=== PATIENT | female | born 1975 | race Caucasian/White ===

== ENCOUNTER 2016-03-09 22:19 | Emergency (ER) | payer OTHER ==
[~2016-03-09] VITALS: Ht 157.5 cm; Wt 95.3 kg
--- OUTSIDE RECORDS SUMMARY | 2016-03-09 22:24 | XMS REPORT | Continuity of Care Document ---
Author Author [facility] Organization [facility] Address Unknown Phone Unavailable Care Team Providers Care Siphon Operator Name Role Phone Kosta Barnes PCP [phone] Source Comments Some departments are not documenting in the electronic medical record. If you do not see the information that you expected, contact Release of Information in the Health Information Management department at [phone] for further assistance in locating additional records.[facility] Active Allergies and Adverse Reactions Allergen Noted Date Severity Reactions Comments Augmentin 03/22/2012 NAUSEA AND VOMITING Cephalosporins 03/22/2012 ANAPHYLAXIS, SHORTNESS OF BREATH Percocet 03/22/2012 NAUSEA AND VOMITING Sulfa (Sulfonamide 03/22/2012 HIVES Antibiotics) Current Medications Prescription Sig. Disp. Refills Start End Date Status Date DOCOSAHEXANOIC ACID/EPA Take 3 Caps by mouth Active (FISH OIL PO) daily. ergocalciferol (VITAMIN Take 50,000 Units by Active D-2) 50,000 unit capsule mouth every 7 days. drospirenone-ethinyl Take 1 Tab by mouth Active estradiol(+) (DEMI 28; daily. OCELLA; CANDELARIO; TARSHA) tablet Cyanocobalamin (NASCOBAL) Apply 1 [place] to each Active 500 mcg [place] nostril as directed twice weekly. MULTIVITAMIN WITH Take 1 Tab by mouth Active MINERALS (MULTIVITAMIN & daily. MINERAL FORMULA PO) Fluticasone Furoate Apply 1 [place] to each Active (VERAMYST) 27.5 nostril as directed twice mcg/actuation SpSn daily. atenolol (TENORMIN) 25 mg Take 25 mg by mouth Active tablet daily. cholecalciferol (Vitamin Take 1,000 Units by mouth Active D3) (VITAMIN D-3) 1,000 daily. units tablet aspirin/acetaminophen/caf Take 1 Tab by mouth as Active feine(+) (EXCEDRIN Needed. MIGRAINE) 250/250/65 mg Tab ibuprofen (MOTRIN) 600 mg Take 600 mg by mouth as Active tablet Needed. FEXOFENADINE HCL ([place] Take 1 Tab by mouth Active PO) daily. SIMETHICONE (GAS-X PO) Take 1 Tab by mouth as Active Needed. omeprazole DR(+) Take 20 mg by mouth as Active (PRILOSEC) 20 mg capsule Needed. ketorolac (TORADOL) 10 mg Take 10 mg by mouth as Active tablet Needed. ALPRAZolam (XANAX) 0.5 mg Take 0.5 mg by mouth at Active tablet bedtime as needed. CYCLOBENZAPRINE HCL Take 1 Tab by mouth at Active (FLEXERIL PO) bedtime daily. acetaminophen (TYLENOL) Take 500 mg by mouth as Active 500 mg tablet Needed. 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
[2016-03-09] MEDS ORDERED: ASPIRIN 81 MG CHEW (CHILDREN'S ASA) PO ONE (22:45)
[2016-03-09 22:46] LABS: BASOPHILS % (AUTO) 0 % (0-10); EOSINOPHILS # (AUTO) 0.1 10^3/uL (0.0-0.3); EOSINOPHILS % (AUTO) 1 % (0-10); LYMPHOCYTES # (AUTO) 4.1 X 10^3 (1.0-4.0); LYMPHOCYTES % (AUTO) 37 % (12-44); MEAN CORPUSCULAR HEMOGLOBIN 30 PG (25-34); MEAN CORPUSCULAR HGB CONC 34 G/DL (32-36); MEAN CORPUSCULAR VOLUME 87 FL (80-99); MEAN PLATELET VOLUME 9.1 FL (7.4-10.4); MONOCYTES # (AUTO) 0.7 X 10^3 (0.0-1.0); MONOCYTES % (AUTO) 7 % (0-12); NEUTROPHILS # (AUTO) 6.1 X 10^3 (1.8-7.8); NEUTROPHILS % (AUTO) 55 % (42-75); PLATELET COUNT 269 10^3/uL (130-400); RED BLOOD COUNT 4.78 10^6/uL (4.35-5.85); RED CELL DISTRIBUTION WIDTH 13.1 % (10.0-14.5); WHITE BLOOD COUNT 11.1 10^3/uL (4.3-11.0)
[2016-03-09] MEDS ORDERED: ATEN25TA PO (22:48)
[2016-03-09] MEDS ORDERED: ETHI1TAB26 PO (22:48)
[2016-03-09] MEDS ORDERED: Ibuprofen (23:05)
[2016-03-09] MEDS ORDERED: ASCO-262 PO (23:05)
[2016-03-09] MEDS ORDERED: CYCL10TA9 PO (23:05)
[2016-03-09] MEDS ORDERED: CALC-857 PO (23:05)
[2016-03-09] MEDS ORDERED: Ketorolac PO (23:05)
[2016-03-09] MEDS ORDERED: Excedrin PO (23:05)
[2016-03-09] MEDS ORDERED: Protonix (23:05)
[2016-03-09 23:11] LABS: ALANINE AMINOTRANSFERASE 11 U/L (0-55); ANION GAP 12 MMOL/L (5-14); ASPARTATE AMINO TRANSFERASE 13 U/L (5-34); BILIRUBIN,TOTAL 0.3 MG/DL (0.1-1.0); BLOOD UREA NITROGEN 12 MG/DL (7-18); BUN/CREATININE RATIO 16; CALCIUM 8.9 MG/DL (8.5-10.1); CARBON DIOXIDE 23 MMOL/L (21-32); CHLORIDE 105 MMOL/L (98-107); CREATININE SERUM 0.77 MG/DL (0.60-1.30); GFR ESTIMATED > 60; GLUCOSE 95 MG/DL (70-105); POTASSIUM 3.1 MMOL/L (3.6-5.0); SODIUM 140 MMOL/L (135-145); TOTAL PROTEIN 6.9 G/DL (6.4-8.2)
--- NOTE | 2016-03-09 23:12 | ED Chest Pain ---
General Chief Complaint: Chest Pain Stated Complaint: CHEST PAIN Nursing Triage Note: PALPITATIONS SINCE YESTERDAY A.M. AND EVENTUALLY CEASED LAST NIGHT. WENT TO WALK IN CARE AT [facility] YESTERDAY FOR THIS. PAIN STARTED AGAIN AFTER 1999 AFTER EATING. PT HAS APPT WITH [facility] IN TOMORROW. Nursing Sepsis Screen: No Definite Risk Source: patient Exam Limitations: no limitations History of Present Illness Time seen by provider: 22:23 Initial Comments This 40-year-old woman presents to the emergency room with primary complaint of palpitations that started yesterday morning. They started after she consumed a protein shake. She describes multiple episodes over the last 48 hours. She does have a history of autonomic dysfunctions for which she sees a negotiator sales , Phuong Peres, at [facility]. She takes atenolol 25 mg daily. Palpitations began again tonight around 20:00. Over the last hour she has developed a little bit of chest discomfort in the lower chest/epigastrium. Discomfort is minimal. She is somewhat anxious. She is on oral control. She took one Excedrin this morning but denies any other stimulants of any kind. Allergies and Home Medications Allergies Coded Allergies: Sulfa (Sulfonamide Antibiotics) (Verified Allergy, Intermediate, HIVES, ITCHING, 05/08/08) amoxicillin (Verified Adverse Reaction, Mild, N/V, 05/08/08) erythromycin base (Verified Adverse Reaction, Mild, NAUSEA, 05/08/08) oxycodone (Verified Adverse Reaction, Mild, N/V, 05/08/08) potassium clavulanate (Verified Adverse Reaction, Mild, N/V, 05/08/08) Uncoded Allergies: MACROLIDES (Adverse Reaction, Unknown, 03/09/16) states her Dr request she avoid Home Medications 10 MG PO PRN (Reported) PO PRN MIGRAINE (Reported) (Reported) (Reported) Ascorbate Calcium 500 Mg Tablet 500 MG PO BID (Reported) Atenolol 25 Mg Tablet 25 MG PO DAILY (Reported) Calcium Carbonate/Vitamin D3 1 Each Tab.chew 2 EACH PO DAILY (Reported) Cyclobenzaprine HCl 10 Mg Tablet 10 MG PO PRN (Reported) Ethinyl Estradiol/Drospirenone 1 Each Tablet 1 EACH PO DAILY (Reported) Review of Systems Constitutional: no symptoms reported EENTM: No Symptoms Reported Respiratory: No Symptoms Reported Cardiovascular: See HPI Gastrointestinal: No Symptoms Reported Genitourinary: No Symptoms Reported Musculoskeletal: no symptoms reported Skin: no symptoms reported Psychiatric/Neurological: See HPI Endocrine: No Symptoms Reported Past Wtxukfx-Wcjjff-Bnewhw Hx Patient Social History Alcohol Use: Rarely Uses Recreational Drug Use: No Smoking Status: Never a Smoker Recent Foreign Travel: No Contact w/Someone Who Travel: No Recent Infectious Disease Expo: No Recent Hopitalizations: No Physical Abuse Screen: No Sexual Abuse: No Seasonal Allergies Seasonal Allergies: No Surgeries Surgeries: Adenoidectomy, Appendectomy, Gallbladder, Tonsillectomy Respiratory Hx Respiratory Disorders: No Cardiovascular Hx Cardiac Disorders: Yes (AUTONOMIC DYSFUNCTION (SEES CARDIOLOGY)) Neurological Hx Neurological Disorders: Yes (Chiari malformation) Neurological Disorders: Headaches /Migraines Reproductive System : No Hx Reproductive Disorders: No Sexually Transmitted Disease: No Female Reproductive Disorders: Polycystic Ovarian Dis Genitourinary Hx Genitourinary Disorders: No Gastrointestinal Hx Gastrointestinal Disorders: No Musculoskeletal Hx Musculoskeletal Disorders: No Endocrine Hx Endocrine Disorders: No HEENT HX ENT Disorders: No Cancer Hx Cancer: No Psychosocial Hx Psychiatric Problems: No Integumentary HX Skin/Integumentary Disorder: No Blood Transfusions Hx Blood Disorders: No Family Medical History Significant Family History: Heart Disease (Hx of SVT), Cancer (colon), Hypertension, Psychiatric Problems, Stroke Physical Exam Vital Signs Capillary Refill : Less Than 3 Seconds General Appearance: No Apparent Distress WD/WN HEENT: PERRL/EOMI Normal ENT Inspection Neck: Normal Inspection Respiratory: Chest Non Tender Lungs Clear Normal Breath Sounds No Accessory Muscle Use No Respiratory Distress Cardiovascular: No Edema No Murmur Normal Peripheral Pulses Other (irregular rhythm consistent with bigeminy noted on monitor) Gastrointestinal: Normal Bowel Sounds Non Tender Soft Extremity: Normal Capillary Refill Normal Inspection Normal Range of Motion Neurologic/Psychiatric: Alert Oriented x3 No Motor/Sensory Deficits Normal Mood/Affect carton folder [id number] Norm as Tested Skin: Normal Color Warm/Dry Progress/Results/Core Measures Results/Orders Lab Results Laboratory Tests Test 03/09/16 22:27 Range/Units Activated Partial Thromboplast Time 30 24-35 SEC Alanine Aminotransferase (ALT/SGPT) 11 0-55 U/L Albumin 4.0 3.2-4.5 G/DL Alkaline Phosphatase 78 40-136 U/L Anion Gap 12 5-14 MMOL/L Aspartate Amino Transf (AST/SGOT) 13 5-34 U/L BUN/Creatinine Ratio 16 Basophils # (Auto) 0.0 0.0-0.1 10^3/uL Basophils (%) (Auto) 0 0-10 % Blood Urea Nitrogen 12 7-18 MG/DL Calcium Level 8.9 8.5-10.1 MG/DL Carbon Dioxide Level 23 21-32 MMOL/L Chloride Level 105 98-107 MMOL/L Creatinine 0.77 0.60-1.30 MG/DL Eosinophils # (Auto) 0.1 0.0-0.3 10^3/uL Eosinophils (%) (Auto) 1 0-10 % Estimat Glomerular Filtration Rate > 60 Glucose Level 95 70-105 MG/DL Hematocrit 42 35-52 % Hemoglobin 14.1 11.5-16.0 G/DL INR Comment 1.0 0.8-1.4 Lymphocytes # (Auto) 4.1 H 1.0-4.0 X 10^3 Lymphocytes (%) (Auto) 37 12-44 % Magnesium Level 2.0 1.8-2.4 MG/DL Mean Corpuscular Hemoglobin 30 25-34 PG Mean Corpuscular Hemoglobin Concent 34 32-36 G/DL Mean Corpuscular Volume 87 80-99 FL Mean Platelet Volume 9.1 7.4-10.4 FL Monocytes # (Auto) 0.7 0.0-1.0 X 10^3 Monocytes (%) (Auto) 7 0-12 % Myoglobin 53.7 10.0-92.0 NG/ML Neutrophils # (Auto) 6.1 1.8-7.8 X 10^3 Neutrophils (%) (Auto) 55 42-75 % Platelet Count 269 130-400 10^3/uL Potassium Level 3.1 L 3.6-5.0 MMOL/L Prothrombin Time 13.0 12.2-14.7 SEC Red Blood Count 4.78 4.35-5.85 10^6/uL Red Cell Distribution Width 13.1 10.0-14.5 % Serum Test, Qualitative NEGATIVE NEGATIVE Sodium Level 140 135-145 MMOL/L TSH [place] Testing 1.75 0.35-4.94 UIU/ML Total Bilirubin 0.3 0.1-1.0 MG/DL Total Protein 6.9 6.4-8.2 G/DL Troponin I < 0.30 <0.30 NG/ML White Blood Count 11.1 H 4.3-11.0 10^3/uL My Orders Orders-LÁZARO MEJIA MD Cbc With Automated Diff (03/09/16 22:39) Magnesium (03/09/16 22:39) Chest 1 View, Ap/Pa Only (03/09/16 22:39) Ekg Tracing (03/09/16 22:39) Cardiac Profile 1 (03/09/16 22:39) Comprehensive Metabolic Panel (03/09/16 22:39) Myoglobin Serum (03/09/16 22:39) Protime With Inr (03/09/16 22:39) Partial Thromboplastin Time (03/09/16 22:39) O2 (03/09/16 22:39) Monitor-Rhythm Ecg Trace Only (03/09/16 22:39) Aspirin Chewable Tablet (Baby Aspirin Ch (03/09/16 22:45) Saline Lock/Iv-Start (03/09/16 22:39) Thyroid Analyzer (03/09/16 22:39) Hcg,Qualitative Serum (03/09/16 23:18) Potassium Chloride (Tablet) (Klor Con Ta (03/09/16 23:45) Medications Given in ED Vital Signs/I&O Blood Pressure Mean: 130 Progress Note #1: Time: 23:09 Progress Note Chest pain protocol orders have been placed. Patient has received aspirin. EKG and monitor demonstrated periodic bigeminy and interspersed frequent PVCs. There is no ST elevation or depression. Progress Note #2: Time: 00:41 Progress Note Potassium was replaced orally. Patient's PVCs and bigeminy decreased in frequency and she was feeling somewhat improved prior to dismissal. Case was reviewed with Dr. Lyons who believes she is safe to travel to her primary cardiology team in [place] later today. ECG Initial ECG Impression Date: Mar 09, 2016 Initial ECG Impression Time: 22:29 Initial ECG Rate: 94 Comment Sinus rhythm with intermittent bigeminy. No ST elevation or depression. LVH by automated read. Diagnostic Imaging Diagonstic Imaging: Xray Plain Films/CT/US/NM/MRI: chest Comments Chest x-ray viewed by me. Report not available. No acute abnormalities appreciated. Departure Impression Impression: Primary Impression: Bigeminy Additional Impression: Hypokalemia Disposition: 01 HOME, SELF-CARE Condition: Improved Departure-Patient Inst. Decision time for Depature: 00:30 Referrals: DIAMOND HENDERSON DO (PCP) Primary Care Physician Patient Instructions: Hypokalemia, Palpitations Add. Discharge Instructions: Keep your appointment with your primary cardiology team later today. Return to the ER if symptoms worsen. Eat a diet high in potassium which may include foods such as citrus fruits and juices, watermelon, yogurt, bananas, etc. Continue your other home medications. Avoid excessive stimulants such as caffeine, decongestants, energy drinks, etc. All discharge instructions reviewed with patient and/or family. Voiced understanding. LÁZARO MEJIA MD Mar 09, 2016 23:[address] Lyons who believes she is safe to travel to her primary cardiology team in [place] later today. ECG Initial ECG Impression Date: Mar 09, 2016 Initial ECG Impression Time: 22:29 Initial ECG Rate: 94 Comment Sinus rhythm with intermittent bigeminy. No ST elevation or depression. LVH by automated read. Diagnostic Imaging Diagonstic Imaging: Xray Plain Films/CT/US/NM/MRI: chest Comments Chest x-ray viewed by me. Report not available. No acute abnormalities appreciated. Departure Impression Impression: Primary Impression: Bigeminy Additional Impression: Hypokalemia Disposition: 01 HOME, SELF-CARE Condition: Improved Departure-Patient Inst. Decision time for Depature: 00:30 Referrals: DIAMOND HENDERSON DO (PCP) Primary Care Physician Patient Instructions: Hypokalemia, Palpitations Add. Discharge Instructions: Keep your appointment with your primary cardiology team later today. Return to the ER if symptoms worsen. Eat a diet high in potassium which may include foods such as citrus fruits and juices, watermelon, yogurt, bananas, etc. Continue your other home medications. Avoid excessive stimulants such as caffeine, decongestants, energy drinks, etc. All discharge instructions reviewed with patient and/or family. Voiced understanding. LÁZARO MEJIA MD Mar 09, 2016 23:12
[2016-03-09] MEDS ORDERED: KCL 10 MEQ TAB (MICRO K) PO ONE (23:45)
[2016-03-09 23:51] LABS: MYOGLOBIN SERUM 53.7 NG/ML (10.0-92.0)
[2016-03-10 00:53] VITALS: BP 118/81
--- NOTE | 2016-03-10 07:12 | Diagnostic Imaging Report ---
INDICATION: Chest pain Comparison is made to study of 04/29/2014. FINDINGS: Heart size and pulmonary vascularity are within normal limits, and the lungs are clear, bilaterally. IMPRESSION: Unremarkable chest. Dictated by: Dictated on workstation # [id number]
== END 2016-03-10 00:53 | disposition home or self-care (01) ==
LOC: EDUNIT# 22:19 → ER 22:20
DX: R00.8 Other abnormalities of heart beat (principal); E87.6 Hypokalemia
CPT/HCPCS: 36415; 71010; 80053; 83735; 83874; 84443; 84484; 84703; 85025; 85610; 85730; 93005; 93041

== ENCOUNTER 2016-04-07 08:04 | Outpatient (RCR) | payer OTHER ==
[~2016-04-07 08:04] MED LIST: ASCO-262 PO; ATEN25TA PO; CALC-857 PO; CYCL10TA9 PO; ETHI1TAB26 PO; Excedrin PO; Ibuprofen; Ketorolac PO; Protonix
--- OUTSIDE RECORDS SUMMARY | 2016-04-07 08:08 | XMS REPORT | Continuity of Care Document ---
Author Author [facility] Organization [facility] Address Unknown Phone Unavailable Care Team Providers Care Log Handler Name Role Phone Kosta Barnes PCP [phone] Source Comments Some departments are not documenting in the electronic medical record. If you do not see the information that you expected, contact Release of Information in the Health Information Management department at [phone] for further assistance in locating additional records.[facility] Active Allergies and Adverse Reactions Allergen [...] CANDELARIO; TARSHA) tablet Cyanocobalamin (NASCOBAL) Apply 1 [place] to each Active 500 mcg [place] nostril as directed twice weekly. MULTIVITAMIN WITH Take 1 Tab by mouth Active MINERALS (MULTIVITAMIN & daily. MINERAL FORMULA PO) Fluticasone Furoate Apply 1 [place] to each Active (VERAMYST) 27.5 nostril as [...] Taken Blood Pressure 127/85 03/22/2012 12:32 PM CABLE MECHANIC Pulse 80 03/22/2012 12:32 PM CABLE MECHANIC Temperature 37 C (98.6 F) 03/22/2012 12:32 PM CABLE MECHANIC Respiratory Rate - - Height - - Weight 96.616 kg (213 lb) 03/22/2012 12:32 PM CABLE MECHANIC Body Mass Index - - Oxygen Saturation - - Plan of Care Health Maintenance Due Date Last Done Comments Physical (Comprehensive) 1981 Exam Pertussis Vaccine 1985 Tetanus Vaccine 12/11/1991 Cervical Cancer Screening 12/11/1995 Influenza Vaccine 11/05/2015 Results from Last 3 Months Not on file
== END 2016-05-03 09:16 | disposition home or self-care (01) ==
DX: M25.562 Pain in left knee (principal)

== ENCOUNTER → 2018-01-23 | Outpatient (CLI) | payer OTHER ==
--- NOTE | 2018-01-24 20:51 | Diagnostic Imaging Report ---
INDICATION: Routine screening. EXAMINATION: Digital mammogram bilateral screening with 3-D tomosynthesis. The current study was also evaluated with a Computer Aided Detection (CAD) system. This study was compared to the prior exam of 05/04/2015. At this time, there are no current complaints. FINDINGS: The fibroglandular tissue in both breasts is heterogeneously dense. This does limit the sensitivity of this exam. Overall, there does not appear to have been any significant change when compared to the prior study. No primary or secondary sign of malignancy is noted. 3D tomographic images fail to show any sign of malignancy. IMPRESSION: There is no radiographic evidence for malignancy. ACR BI-RADS Category 1: Negative. Result letter will be mailed to the patient. Note: At least 10% of breast cancer is not imaged by mammography. Dictated on workstation # [id number]
== END ==
LOC: RAD 12:39
PROVIDERS: ATTEND Nurse Practitioner
DX: Z12.31 Encounter for screening mammogram for malignant neoplasm of breast (principal)
CPT/HCPCS: 77067

== ENCOUNTER 2019-08-02 00:17 | Emergency (ER) | payer OTHER ==
[~2019-08-02] VITALS: Ht 157 cm; Wt 101.0 kg
[2019-08-02] MEDS ORDERED: LACTATED RINGERS 1,000 ML IV ONE ×3 (00:33→01:01)
[2019-08-02] MEDS ORDERED: ONDANSETRON 4 MG/2 ML (SDV) Z0FRAN ONE (00:34)
[2019-08-02] MEDS ORDERED: ONDANSETRON 4 MG/2 ML (SDV) Z0FRAN IVP ONE ×2 (00:45→02:30)
[2019-08-02 00:49] LABS: BASOPHILS % (AUTO) 0 % (0-10); EOSINOPHILS # (AUTO) 0.1 10^3/uL (0.0-0.3); EOSINOPHILS % (AUTO) 0 % (0-10); HEMATOCRIT 42 % (35-52); HEMOGLOBIN 13.8 G/DL (11.5-16.0); LYMPHOCYTES # (AUTO) 1.1 X 10^3 (1.0-4.0); LYMPHOCYTES % (AUTO) 6 % (12-44); MEAN CORPUSCULAR HEMOGLOBIN 29 PG (25-34); MEAN CORPUSCULAR HGB CONC 33 G/DL (32-36); MEAN CORPUSCULAR VOLUME 88 FL (80-99); MEAN PLATELET VOLUME 9.2 FL (7.4-10.4); MONOCYTES % (AUTO) 6 % (0-12); NEUTROPHILS # (AUTO) 15.1 X 10^3 (1.8-7.8); NEUTROPHILS % (AUTO) 88 % (42-75); PLATELET COUNT 261 10^3/uL (130-400); WHITE BLOOD COUNT 17.3 10^3/uL (4.3-11.0)
[2019-08-02 00:52] LABS: ALBUMIN 3.8 GM/DL (3.2-4.5); CHLORIDE 104 MMOL/L (98-107); POTASSIUM 3.5 MMOL/L (3.6-5.0); SODIUM 138 MMOL/L (135-145)
[2019-08-02 00:54] LABS: AMYLASE 65 U/L (25-125); CALCIUM 8.4 MG/DL (8.5-10.1)
[2019-08-02 00:55] LABS: GLUCOSE 122 MG/DL (70-105); TOTAL PROTEIN 6.8 GM/DL (6.4-8.2)
[2019-08-02 00:56] LABS: CARBON DIOXIDE 21 MMOL/L (21-32)
[2019-08-02 00:57] LABS: BILIRUBIN,TOTAL 0.3 MG/DL (0.1-1.0)
[2019-08-02 00:58] LABS: ALKALINE PHOSPHATASE 76 U/L (40-136)
[2019-08-02 00:59] LABS: CREATININE SERUM 0.72 MG/DL (0.60-1.30); GFR ESTIMATED > 60
[2019-08-02 01:00] LABS: BUN/CREATININE RATIO 19
[2019-08-02 01:01] LABS: ALANINE AMINOTRANSFERASE 14 U/L (0-55); MAGNESIUM 1.6 MG/DL (1.6-2.4)
[2019-08-02 01:02] LABS: LIPASE 33 U/L (8-78)
[2019-08-02 01:12] LABS: BAND NEUTROPHILS 4 %; LYMPHOCYTES % (MANUAL) 7 %; MONOCYTES % (MANUAL) 7 %; NEUTROPHILS % (MANUAL) 82 %; RBC MORPH NORMAL
[2019-08-02] MEDS ORDERED: HYOSCYAMINE 0.125 MG (LEVSIN) TAB PO ONE (01:15)
[2019-08-02] MEDS ORDERED: PANTOPRAZOLE 40 MG (PROTONIX) VIAL IV ONE (01:15)
--- NOTE | 2019-08-02 01:26 | ED GI ---
General Chief Complaint: Abdominal/GI Problems Stated Complaint: NAUSEA,VOMITING,DIARRHEA Nursing Triage Note: Pt ambulates to [facility] 5 with c/o N/V/D/epigastric pain that started this evening about 1999 after eating pizza she never ate before. Pt states she's been vomiting about 3x/hr since. Pt denies any fever/chills. 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 NO KNOWN EXPOSURE TO CORONAVIRUS PT HAS HAD CHOLECYSTECTOMY, APPENDECTOMY, LAPAROSCOPY FOR ENDOMETRIOSIS OTHERWISE NO CHRONIC GI PROBLEMS LMP--2 WEEKS AGO, NORMAL. ON OCP'S PCP: DR. GRACIA Allergies and Home Medications Allergies Coded Allergies: Sulfa (Sulfonamide Antibiotics) (Verified Allergy, Intermediate, HIVES, ITCHING, 05/08/08) amoxicillin (Verified Adverse Reaction, Mild, N/V, 05/08/08) erythromycin base (Verified Adverse Reaction, Mild, NAUSEA, 05/08/08) oxycodone (Verified Adverse Reaction, Mild, N/V, 05/08/08) potassium clavulanate (Verified Adverse Reaction, Mild, N/V, 05/08/08) Uncoded Allergies: MACROLIDES (Adverse Reaction, Unknown, 03/09/16) states her Dr request she avoid Home Medications Ascorbate Calcium 500 Mg Tablet, 500 MG PO BID, (Reported) Atenolol 25 Mg Tablet, 25 MG PO DAILY, (Reported) Calcium Carbonate/Vitamin D3 1 Each Tab.chew, 2 EACH PO DAILY, (Reported) Cyclobenzaprine HCl 10 Mg Tablet, 10 MG PO PRN, (Reported) Ethinyl Estradiol/Drospirenone 1 Each Tablet, 1 EACH PO DAILY, (Reported) [Excedrin] , PO for MIGRAINE, (Reported) [Ketorolac] , 10 MG PO PRN, (Reported) Patient Home Medication List Home Medication List Reviewed: Yes Review of Systems Review of Systems Constitutional: no symptoms reported; No chills, No diaphoresis, No dizziness, No fever Respiratory: No Symptoms Reported Cardiovascular: No Symptoms Reported Gastrointestinal: See HPI, Abdominal Pain, Diarrhea, Nausea, Vomiting Genitourinary: No Symptoms Reported Musculoskeletal: no symptoms reported Skin: no symptoms reported Psychiatric/Neurological: Headache (HAD NORMAL MIGRAINE THIS AM--TOOK [place] D AND KETOROLAC-HEADACHE WENT AWAY AND HAS NOT RETURNED) Endocrine: No Symptoms Reported Hematologic/Lymphatic: No Symptoms Reported Past Gcwzucb-Idsxlh-Bxekai Hx Past Med/Social Hx: Reviewed and Corrections made Patient Social History Alcohol Use: Rarely Uses Recreational Drug Use: No Smoking Status: Never a Smoker 2nd Hand Smoke Exposure: No Recent Foreign Travel: No Contact w/Someone Who Travel: No Recent Infectious Disease Expo: No Recent Hopitalizations: No Physical Abuse: No Sexual Abuse: No Mistreated: No Fear: No Seasonal Allergies Seasonal Allergies: No Past Medical History Surgeries: Yes (LAPAROSCOPY FOR ENDOMETRIOSIS) Abdominal, Adenoidectomy, Appendectomy, Gallbladder, Tonsillectomy Respiratory: No Cardiac: Yes (AUTONOMIC DYSFUNCTION--TAKES ATENOLOL) Neurological: Yes (CHIARI MALFORMATION; FREQUENT HEADACHES/MIGRAINES) Headaches /Migraines Reproductive Disorders: Yes Female Reproductive Disorders: Endometriosis, Polycystic Ovarian Dis Sexually Transmitted Disease: No Genitourinary: No Gastrointestinal: Yes (APPY, CHOLECYSTECTOMY) Gall Bladder Disease Musculoskeletal: No Endocrine: No HEENT: No Cancer: No Psychosocial: No Integumentary: No Blood Disorders: No Family Medical History Heart Disease, Cancer, Hypertension, Psychiatric Problems, Stroke Physical Exam Vital Signs Vital Signs - First Documented 08/02/19 00:27 Temp 36.4 Pulse 110 Resp 18 B/P (MAP) 131/96 (108) Pulse Ox 98 O2 Delivery Room Air Capillary Refill : Less Than 3 Seconds Height/Weight/BMI Height: 5'2.00" Weight: 210lbs. oz. 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, no motor/sensory deficits, alert, normal mood/affect, oriented x 3 Skin: normal color, warm/dry Progress/Results/Core Measures Results/Orders Lab Results Laboratory Tests Test 08/02/19 00:33 08/02/19 01:57 Range/Units White Blood Count 17.3 H 4.3-11.0 10^3/uL Red Blood Count 4.70 4.35-5.85 10^6/uL Hemoglobin 13.8 11.5-16.0 G/DL Hematocrit 42 35-52 % Mean Corpuscular Volume 88 80-99 FL Mean Corpuscular Hemoglobin 29 25-34 PG Mean Corpuscular Hemoglobin Concent 33 32-36 G/DL Red Cell Distribution Width 14.0 10.0-14.5 % Platelet Count 261 130-400 10^3/uL Mean Platelet Volume 9.2 7.4-10.4 FL Neutrophils (%) (Auto) 88 H 42-75 % Lymphocytes (%) (Auto) 6 L 12-44 % Monocytes (%) (Auto) 6 0-12 % Eosinophils (%) (Auto) 0 0-10 % Basophils (%) (Auto) 0 0-10 % Neutrophils # (Auto) 15.1 H 1.8-7.8 X 10^3 Lymphocytes # (Auto) 1.1 1.0-4.0 X 10^3 Monocytes # (Auto) 1.0 0.0-1.0 X 10^3 Eosinophils # (Auto) 0.1 0.0-0.3 10^3/uL Basophils # (Auto) 0.0 0.0-0.1 10^3/uL Neutrophils % (Manual) 82 % Lymphocytes % (Manual) 7 % Monocytes % (Manual) 7 % Band Neutrophils 4 % Blood Morphology Comment NORMAL Sodium Level 138 135-145 MMOL/L Potassium Level 3.5 L 3.6-5.0 MMOL/L Chloride Level 104 98-107 MMOL/L Carbon Dioxide Level 21 21-32 MMOL/L Anion Gap 13 5-14 MMOL/L Blood Urea Nitrogen 14 7-18 MG/DL Creatinine 0.72 0.60-1.30 MG/DL Estimat Glomerular Filtration Rate > 60 BUN/Creatinine Ratio 19 Glucose Level 122 H 70-105 MG/DL Calcium Level 8.4 L 8.5-10.1 MG/DL Corrected Calcium 8.6 8.5-10.1 MG/DL Magnesium Level 1.6 1.6-2.4 MG/DL Total Bilirubin 0.3 0.1-1.0 MG/DL Aspartate Amino Transf (AST/SGOT) 13 5-34 U/L Alanine Aminotransferase (ALT/SGPT) 14 0-55 U/L Alkaline Phosphatase 76 40-136 U/L Total Protein 6.8 6.4-8.2 GM/DL Albumin 3.8 3.2-4.5 GM/DL Amylase Level 65 25-125 U/L Lipase 33 8-78 U/L Serum Test, Qualitative NEGATIVE NEGATIVE Urine Color YELLOW Urine Clarity CLEAR Urine pH 6.0 5-9 Urine Specific [place] 1.010 L 1.016-1.022 Urine Protein NEGATIVE NEGATIVE Urine Glucose (UA) TRACE H NEGATIVE Urine Ketones NEGATIVE NEGATIVE Urine Nitrite NEGATIVE NEGATIVE Urine Bilirubin NEGATIVE NEGATIVE Urine Urobilinogen 0.2 < = 1.0 MG/DL Urine Leukocyte Esterase NEGATIVE NEGATIVE Urine RBC (Auto) NEGATIVE NEGATIVE Urine RBC NONE /HPF Urine WBC NONE /HPF Urine Squamous Epithelial Cells 5-10 /HPF Urine Crystals NONE /LPF Urine Bacteria TRACE /HPF Urine Casts NONE /LPF Urine Mucus MODERATE H /LPF Urine Culture Indicated NO My Orders Orders - DORCAS JUAREZ DO Ed Iv/Invasive Line Start (08/02/19:40) Monitor-Rhythm Ecg Trace Only (08/02/19:40) Amylase (08/02/19:40) Cbc With Automated Diff (08/02/19:40) Comprehensive Metabolic Panel (08/02/19 00:40) Hcg,Qualitative Serum (08/02/19 00:40) Lipase (08/02/19 00:40) Magnesium (08/02/19:40) Ua Culture If Indicated (5/29/20 00:40) Ondansetron Injection (Zofran Injectio (08/02/19 00:45) Ed Iv/Invasive Line Start (08/02/19 00:40) Lactated Ringers (Lr 1000 Ml Iv Solution (08/02/19 00:40) Lactated Ringers (Lr 1000 Ml Iv Solution (08/02/19 00:33) Ondansetron Injection (Zofran Injectio (08/02/19 00:34) Manual Differential (08/02/19 00:33) Pantoprazole Injection (Protonix Injecti (08/02/19 01:15) Hyoscyamine Sl Tablet (Levsin Sl Tablet) (08/02/19 01:15) Ed Iv/Invasive Line Start (08/02/19 01:01) Lactated Ringers (Lr 1000 Ml Iv Solution (08/02/19 01:01) Ondansetron Injection (Zofran Injectio (08/02/19 02:30) Medications Given in ED Current Medications Medications Dose Ordered Sig/Anya Route Start Time Stop Time Status Last Admin Dose Admin Hyoscyamine Sulfate 0.25 mg ONCE ONCE PO 08/02/19 01:15 08/02/19 01:16 DC 08/02/19 01:08 0.25 MG Lactated Ringer's 1,000 ml @ 0 mls/hr Q0M ONCE IV 08/02/19 00:40 08/02/19 00:42 DC 08/02/19 00:43 0 MLS/HR Lactated Ringer's 1,000 ml @ 0 mls/hr Q0M ONCE IV 08/02/19 01:01 08/02/19 01:02 DC 08/02/19 01:22 0 MLS/HR Ondansetron HCl 8 mg ONCE ONCE IVP 08/02/19 00:45 08/02/19 00:46 DC 08/02/19 00:43 8 MG Ondansetron HCl 8 mg ONCE ONCE IVP 08/02/19 02:30 08/02/19 02:31 DC 08/02/19 02:20 8 MG Pantoprazole 40 mg ONCE ONCE IV 08/02/19 01:15 08/02/19 01:16 DC 08/02/19 01:08 40 MG Vital Signs/I&O 08/02/19 00:27 Temp 36.4 Pulse 110 Resp 18 B/P (MAP) 131/96 (108) Pulse Ox 98 O2 Delivery Room Air Blood Pressure Mean: 108 Progress Progress Note : Progress Note GIVEN IV FLUIDS AND ZOFRAN, LEVSIN, PROTONIX--SYMPTOMS IMPROVED NO VOMITING OR DIARRHEA DURING ER STAY, STOMACH PAIN/CRAMPING IS EASED PT TOLERATING ICE CHIPS PRIOR TO DISMISSAL Departure Impression Primary Impression: Gastroenteritis Disposition: HOME, SELF-CARE Condition: Improved Departure-Patient Inst. Referrals: MARY ELLEN GRACIA DO (PCP/Family) Primary Care Physician Patient Instructions: [id number] Add. Discharge Instructions: LOTS OF CLEAR LIQUIDS--WATER, BROTH, JELLO, GATORADE, POPSICLES TOMORROW IF YOU ARE FEELING BETTER, ADD BRATS DIET TO CLEAR LIQUIDS--BANANAS, RICE, APPLESAUCE, TOAST, SALTINES TAKE OMEPRAZOLE EVERY MORNING FOLLOW UP WITH [facility] IF SYMPTOMS DO NOT IMPROVE OR RETURN TO ER IF WORSE All discharge instructions reviewed with patient and/or family. Voiced understanding. Scripts Ondansetron (Ondansetron Odt) 8 Mg Tab.rapdis 8 MG PO Q4H PRN for NAUSEA/VOMITING, #10 TAB Prov: DORCAS JUAREZ DO 08/02/19 Hyoscyamine Sulfate (Levsin-Sl) 0.125 Mg Tab.subl 0.25 MG SL Q4H, #10 TAB Prov: DORCAS JUAREZ DO 08/02/19 L. Acidophilus/Pectin, [place] (Acidophilus Capsule) 1 Each Capsule 2 EACH PO QID, #40 CAP Prov: DORCAS JUAREZ DO 08/02/19 DORCAS JUAREZ DO August 02, 2019 01:26
[2019-08-02 02:05] LABS: BILIRUBIN,URINE NEGATIVE (NEGATIVE); CLARITY,URINE CLEAR; COLOR,URINE YELLOW; GLUCOSE, URINE (UA) TRACE (NEGATIVE); KETONES,URINE NEGATIVE (NEGATIVE); LEUKOCYTE ESTERASE ,URINE NEGATIVE (NEGATIVE); NITRITE,URINE NEGATIVE (NEGATIVE); PROTEIN,URINE NEGATIVE (NEGATIVE)
[2019-08-02 02:20] LABS: BACTERIA,URINE TRACE /HPF
[2019-08-02] MEDS ORDERED: RX-ONDANSETRON 4 MG ODT (ZOFRAN) PPK #4 ONE (03:16)
[2019-08-02] MEDS ORDERED: RX-HYOSCYAMINE 0.125 MG SL (LEVSIN) PPK#6 ONE (03:16)
[2019-08-02] MEDS ORDERED: HYOS0.1283 SL (03:19)
[2019-08-02] MEDS ORDERED: L. A1CAP11 PO (03:19)
[2019-08-02] MEDS ORDERED: ONDA8TAB13 PO (03:19)
[2019-08-02] MEDS ORDERED: RX-ONDANSETRON 4 MG ODT (ZOFRAN) PPK #4 PO STA (03:23)
[2019-08-02] MEDS ORDERED: RX-HYOSCYAMINE 0.125 MG SL (LEVSIN) PPK#6 SL STA (03:23)
[2019-08-02 03:33] VITALS: BP 137/87
== END 2019-08-02 03:36 | disposition home or self-care (01) ==
LOC: EDUNIT# 00:17 → ER 00:23
DX: K52.9 Noninfective gastroenteritis and colitis, unspecified (principal); G43.909 Migraine, unspecified, not intractable, without status migrainosus; Z88.2 Allergy status to sulfonamides; Z88.0 Allergy status to penicillin; Z88.8 Allergy status to other drugs, medicaments and biological substances; Z88.1 Allergy status to other antibiotic agents; Z79.52 Long term (current) use of systemic steroids; Z82.49 Family history of ischemic heart disease and other diseases of the circulatory system
CPT/HCPCS: 36415; 80053; 81000; 82150; 83690; 83735; 84703; 85007; 85027; 93041; 96361; 96374; 96375; 96376

== ENCOUNTER → 2020-02-17 | Outpatient (CLI) | payer OTHER ==
[~2020-02-17] MED LIST changes: +GADOBUTROL 10 MMOL/10 ML (GADAVIST) VIAL IV ONE; +HYOS0.1283 SL; +L. A1CAP11 PO; +ONDA8TAB13 PO
--- NOTE | 2020-02-17 09:37 | Diagnostic Imaging Report ---
PROCEDURE: MR angiography of the brain without the use of contrast. TECHNIQUE: 3D [id number] non contrast enhanced MR angiography of the head was performed. A source data was reformatted into rotating MIP projections. INDICATION: Right facial pain. Right jaw pain. History of Chiari malformation. COMPARISON: CT head without contrast 02/05/2014. FINDINGS: The basilar, intracranial internal carotid, vertebral, anterior cerebral, middle cerebral posterior cerebral arteries widely patent without evidence of aneurysm or dissection. 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 The visualized dural venous sinuses appear widely patent. IMPRESSION: No high-grade narrowing, aneurysm or dissection involving major intracranial arteries. Dictated by: Dictated on workstation # [id number]
--- NOTE | 2020-02-17 10:45 | Diagnostic Imaging Report ---
EXAM: MRI BRAIN IAC W/WO CONTRAST INDICATION: Right facial pain. Trigeminal neuralgia. COMPARISON: MRA head also performed today. CT head without contrast 02/05/2014. FINDINGS: No abnormal intracranial signal or enhancement. No restricted water diffusion. No hemosiderin deposition or evidence of intracranial hemorrhage. Benign developmental venous anomaly in the right frontal lobe. Normal morphology of the major midline structures and sella. Tonsillar cerebellar ectopia measuring approximately 10 mm. Dedicated sequences to the level of the cerebellar pontine angle and internal auditory canals demonstrates normal morphology with no suspicious mass or enhancement. Tiny 0.3 cm lesion lateral to the medulla matches CSF signal on all sequences and demonstrates no abnormal enhancement. Normal intracranial flow voids. No hydrocephalus. The orbits are negative. The paranasal sinuses and mastoids are clear. Normal bone marrow signal. IMPRESSION: 1. No acute intracranial MRI findings. 2. Dedicated sequences to the level of the cerebellar pontine angle demonstrates no suspicious mass or enhancement. Specifically, the trigeminal nerves are symmetric in caliber and demonstrate no abnormal enhancement. 3. Tiny 0.3 cm cystic lesion lateral to the medulla on the left matches CSF sequence on all sequences and likely represents a benign arachnoid cyst. Dictated by: Dictated on workstation # [id number]
== END ==
LOC: RAD 08:00
PROVIDERS: ATTEND Nurse Practitioner
DX: G50.0 Trigeminal neuralgia (principal); G93.0 Cerebral cysts; G93.5 Compression of brain
CPT/HCPCS: 70544; 70553

== ENCOUNTER 2021-11-23 08:11 | Emergency (ER) | payer OTHER ==
[~2021-11-23] VITALS: Ht 157.5 cm; Wt 93.8 kg
[~2021-11-23 08:11] MED LIST changes: +CYCL10TA25 PO; -CYCL10TA9 PO; -GADOBUTROL 10 MMOL/10 ML (GADAVIST) VIAL IV ONE
[2021-11-23 08:36] LABS: BASOPHILS # (AUTO) 0.1 10^3/uL (0.0-0.1); BASOPHILS % (AUTO) 0 % (0-10); EOSINOPHILS % (AUTO) 0 % (0-10); HEMATOCRIT 45 % (35-52); HEMOGLOBIN 15.2 g/dL (11.5-16.0); LYMPHOCYTES # (AUTO) 3.7 10^3/uL (1.0-4.0); LYMPHOCYTES % (AUTO) 32 % (12-44); MEAN CORPUSCULAR HEMOGLOBIN 29 pg (25-34); MEAN CORPUSCULAR HGB CONC 34 g/dL (32-36); MEAN CORPUSCULAR VOLUME 85 fL (80-99); MEAN PLATELET VOLUME 9.5 fL (9.0-12.2); MONOCYTES # (AUTO) 0.7 10^3/uL (0.0-1.0); MONOCYTES % (AUTO) 6 % (0-12); NEUTROPHILS % (AUTO) 61 % (42-75); PLATELET COUNT 332 10^3/uL (130-400); WHITE BLOOD COUNT 11.6 10^3/uL (4.3-11.0)
[2021-11-23] MEDS ORDERED: ASPIRIN 81 MG CHEW (CHILDREN'S ASA) PO ONE (08:45)
[2021-11-23 08:52] LABS: ALBUMIN 4.1 GM/DL (3.2-4.5); INR 0.9 (0.8-1.4); POTASSIUM 3.2 MMOL/L (3.6-5.0); PROTHROMBIN TIME PATIENT 12.4 SEC (12.2-14.7)
[2021-11-23 08:53] LABS: CALCIUM 9.6 MG/DL (8.5-10.1)
[2021-11-23 08:54] LABS: TOTAL PROTEIN 7.7 GM/DL (6.4-8.2)
[2021-11-23 08:56] LABS: BILIRUBIN,TOTAL 0.6 MG/DL (0.1-1.0)
[2021-11-23 08:58] LABS: CREATININE SERUM 0.82 MG/DL (0.60-1.30)
[2021-11-23 09:01] LABS: MAGNESIUM 1.9 MG/DL (1.6-2.4)
--- NOTE | 2021-11-23 09:14 | Diagnostic Imaging Report ---
EXAMINATION: Chest 1 view HISTORY: Chest pain. Palpitations. COMPARISON: 03/09/2016. FINDINGS: The lung volumes are normal. No focal consolidation is seen. No large pleural effusion or pneumothorax is seen. The cardiomediastinal silhouette is normal in size and contour. No acute osseous abnormality is seen. IMPRESSION: 1. No acute pleuroparenchymal process. Dictated by: Dictated on workstation # [id number]
[2021-11-23] MEDS ORDERED: POTASSIUM CL 10MEQ/50ML IVPB 50 ML IV ONE (09:30)
[2021-11-23] MEDS ORDERED: NS IV 500 ML 500 ML IV ONE (09:30)
--- NOTE | 2021-11-23 09:30 | ED Chest Pain ---
General Chief Complaint: Cardiac/General Problems Stated Complaint: HEART PALPITATONS/SOA/DIZZY/LIGHTHEADED Nursing Triage Note: PT AMB TO RM 5 WITH COMPLAINT OF PALPITATIONS. HAS BEEN HAVING PALPITATIONS FOR THE LAST WEEK AND WAS TOLD TO TAKE AN EXTRA BETA TRAVIS. COMPLAINING OF CHEST TIGHTNESS AND HOLLOWNESS. Source: patient Exam Limitations: no limitations History of Present Illness Date Seen by Provider: Nov 23, 2021 Time Seen by Provider: 08:15 Allergies and Home Medications Allergies Coded Allergies: Sulfa (Sulfonamide Antibiotics) (Verified Allergy, Intermediate, HIVES, ITCHING, 05/08/08) cefuroxime (Verified Allergy, Unknown, 11/23/21) cyproheptadine (Verified Allergy, Unknown, 11/23/21) meloxicam (Verified Allergy, Unknown, Facial swellin, 11/23/21) Can take aspirin without problems. promethazine (Verified Allergy, Unknown, 11/23/21) amoxicillin (Verified Adverse Reaction, Mild, N/V, 05/08/08) erythromycin base (Verified Adverse Reaction, Mild, NAUSEA, 05/08/08) oxycodone (Verified Adverse Reaction, Mild, N/V, 05/08/08) potassium clavulanate (Verified Adverse Reaction, Mild, N/V, 05/08/08) Uncoded Allergies: MACROLIDES (Adverse Reaction, Unknown, 03/09/16) states her Dr request she avoid Patient Home Medication List Ascorbate Calcium (Vitamin C) 500 Mg Tablet, 500 MG PO BID, (Reported) Entered as Reported by: ANNA COLLAZO on 03/09/162304 Atenolol (Atenolol) 25 Mg Tablet, 25 MG PO DAILY, (Reported) Entered as Reported by: ANNA COLLAZO on 03/09/162247 Calcium Carbonate/Vitamin D3 (Caltrate 600 + D Soft Chew Tab) 1 Each Tab.chew, 2 EACH PO DAILY, (Reported) Entered as Reported by: ANNA COLLAZO on 03/09/162304 Cyclobenzaprine HCl (Cyclobenzaprine HCl) 10 Mg Tablet, 10 MG PO PRN, (Reported) Entered as Reported by: ANNA COLLAZO on 03/09/162304 Ethinyl Estradiol/Drospirenone (Gregoria 28 Tablet) 1 Each Tablet, 1 EACH PO DAILY, (Reported) Entered as Reported by: ANNA COLLAZO on 03/09/162247 Hyoscyamine Sulfate (Levsin-Sl) 0.125 Mg Tab.subl, 0.25 MG SL Q4H Prescribed by: DORCAS JUAREZ on 08/02/19318 L. Acidophilus/Pectin, [place] (Acidophilus Capsule) 1 Each Capsule, 2 EACH PO QID Prescribed by: DORCAS JUAREZ on 08/02/19318 Ondansetron (Ondansetron Odt) 8 Mg Tab.rapdis, 8 MG PO Q4H PRN for NAUSEA/VOMITING Prescribed by: DORCAS JUAREZ on 08/02/19318 [Excedrin] , PO for MIGRAINE, (Reported) Entered as Reported by: ANNA COLLAZO on 03/09/162304 [Ibuprofen] , (Reported) Entered as Reported by: ANNA COLLAZO on 03/09/162304 [Ketorolac] , 10 MG PO PRN, (Reported) Entered as Reported by: ANNA COLLAZO on 03/09/162304 [Protonix] , (Reported) Entered as Reported by: ANNA COLLAZO on 03/09/162304 Past Xgdadve-Nhcjjd-Lvsovy Hx Patient Social History Tobacco Use?: No Use of E-Cig and/or Vaping dev: No Substance use?: No Alcohol Use?: No Pt feels they are or have been: No Seasonal Allergies Seasonal Allergies: No Past Medical History Surgeries: Yes (LAPAROSCOPY FOR ENDOMETRIOSIS) Abdominal, Adenoidectomy, Appendectomy, Gallbladder, Tonsillectomy Respiratory: No Cardiac: Yes (AUTONOMIC DYSFUNCTION--TAKES ATENOLOL) Neurological: Yes (CHIARI MALFORMATION; FREQUENT HEADACHES/MIGRAINES) Headaches /Migraines Reproductive Disorders: Yes Female Reproductive Disorders: Endometriosis, Polycystic Ovarian Dis Sexually Transmitted Disease: No Genitourinary: No Gastrointestinal: Yes (APPY, CHOLECYSTECTOMY) Gall Bladder Disease Musculoskeletal: No Endocrine: No HEENT: No Cancer: No Psychosocial: No Integumentary: No Blood Disorders: No Family Medical History Heart Disease, Cancer, Hypertension, Psychiatric Problems, Stroke Physical Exam Vital Signs Vital Signs - First Documented 11/23/21 08:12 Temp 36.0 Pulse 76 Resp 22 B/P (MAP) 138/100 (113) Pulse Ox 100 O2 Delivery Room Air Capillary Refill : Less Than 3 Seconds Height, Weight, BMI Height: 5'2.00" Weight: 210lbs. oz. 95.161321vz; 37.00 BMI Method:Stated Progress/Results/Core Measures Results/Orders Lab Results Laboratory Tests Test 11/23/21 08:26 11/23/21 09:30 11/23/21 11:15 Range/Units White Blood Count 11.6 H 4.3-11.0 10^3/uL Red Blood Count 5.26 H 3.80-5.11 10^6/uL Hemoglobin 15.2 11.5-16.0 g/dL Hematocrit 45 35-52 % Mean Corpuscular Volume 85 80-99 fL Mean Corpuscular Hemoglobin 29 25-34 pg Mean Corpuscular Hemoglobin Concent 34 32-36 g/dL Red Cell Distribution Width 13.7 10.0-14.5 % Platelet Count 332 130-400 10^3/uL Mean Platelet Volume 9.5 9.0-12.2 fL Immature Granulocyte % (Auto) 0 % Neutrophils (%) (Auto) 61 42-75 % Lymphocytes (%) (Auto) 32 12-44 % Monocytes (%) (Auto) 6 0-12 % Eosinophils (%) (Auto) 0 0-10 % Basophils (%) (Auto) 0 0-10 % Neutrophils # (Auto) 7.0 1.8-7.8 10^3/uL Lymphocytes # (Auto) 3.7 1.0-4.0 10^3/uL Monocytes # (Auto) 0.7 0.0-1.0 10^3/uL Eosinophils # (Auto) 0.0 0.0-0.3 10^3/uL Basophils # (Auto) 0.1 0.0-0.1 10^3/uL Immature Granulocyte # (Auto) 0.0 0.0-0.1 10^3/uL Prothrombin Time 12.4 12.2-14.7 SEC INR Comment 0.9 0.8-1.4 Activated Partial Thromboplast Time 30 24-35 SEC D-Dimer < 0.27 0.00-0.49 UG/ML Sodium Level 141 135-145 MMOL/L Potassium Level 3.2 L 3.6-5.0 MMOL/L Chloride Level 104 98-107 MMOL/L Carbon Dioxide Level 19 L 21-32 MMOL/L Anion Gap 18 H 5-14 MMOL/L Blood Urea Nitrogen 12 7-18 MG/DL Creatinine 0.82 0.60-1.30 MG/DL Estimat Glomerular Filtration Rate 89 BUN/Creatinine Ratio 15 Glucose Level 94 70-105 MG/DL Calcium Level 9.6 8.5-10.1 MG/DL Corrected Calcium 9.5 8.5-10.1 MG/DL Magnesium Level 1.9 1.6-2.4 MG/DL Total Bilirubin 0.6 0.1-1.0 MG/DL Aspartate Amino Transf (AST/SGOT) 14 5-34 U/L Alanine Aminotransferase (ALT/SGPT) 14 0-55 U/L Alkaline Phosphatase 80 40-136 U/L Myoglobin 27.3 10.0-92.0 NG/ML Troponin I < 0.028 < 0.028 <0.028 NG/ML C-Reactive Protein High Sensitivity 2.86 H 0.00-0.50 MG/DL B-Type Natriuretic Peptide 160.2 H <100.0 PG/ML Total Protein 7.7 6.4-8.2 GM/DL Albumin 4.1 3.2-4.5 GM/DL TSH Cataño Testing 2.42 0.35-4.94 UIU/ML Serum Test, Qualitative NEGATIVE NEGATIVE Influenza Type A (RT-PCR) Not Detected Not Detecte Influenza Type B (RT-PCR) Not Detected Not Detecte SARS-CoV-2 RNA (RT-PCR) Not Detected Not Detecte My Orders Orders - LÁZARO MEJIA MD Ekg Tracing (11/23/21 08:13) Cbc With Automated Diff (11/23/21 08:15) Magnesium (11/23/21 08:15) Chest 1 View, Ap/Pa Only (11/23/21 08:15) Comprehensive Metabolic Panel (11/23/21 08:15) Myoglobin Serum (11/23/21 08:15) Protime With Inr (11/23/21 08:15) Partial Thromboplastin Time (11/23/21 08:15) O2 (11/23/21 08:15) Monitor-Rhythm Ecg Trace Only (11/23/21 08:15) Lipid Panel (11/24/21 06:00) Ed Iv/Invasive Line Start (11/23/21 08:15) Troponin I Jessica (11/23/21 08:15) Bnp Jessica (11/23/21 08:31) Hs C Reactive Protein (11/23/21 08:31) Fibrin Degradation Products (11/23/21 08:31) Hcg,Qualitative Serum (11/23/21 08:31) Thyroid Analyzer (11/23/21 08:31) Aspirin Chewable Tablet (Baby Aspirin Ch (11/23/21 08:45) Covid 19 Inhouse Test (11/23/21 08:35) Influenza A And B By Pcr (11/23/21 08:35) Troponin I [place] (11/23/21 11:15) Potassium Cl 10meq/50ml Ivpb (Kcl 10 Meq (11/23/21 09:30) Ns Iv 500 Ml (Sodium Chloride 0.9%) (11/23/21 09:30) Potassium Chloride (Tablet) (Klor Con Ta (11/23/21 12:15) Medications Given in ED Current Medications Medications Dose Ordered Sig/Anya Route Start Time Stop Time Status Last Admin Dose Admin Aspirin 324 mg ONCE ONCE PO 11/23/21 08:45 11/23/21 08:46 DC 11/23/21 09:10 324 MG Potassium Chloride 50 ml @ 50 mls/hr ONCE ONCE IV 11/23/21 09:30 11/23/21 10:29 DC 11/23/21 09:50 50 MLS/HR Sodium Chloride 500 ml @ 0 mls/hr Q0M ONCE IV 11/23/21 09:30 11/23/21 09:31 DC 11/23/21 09:50 0 MLS/HR Vital Signs/I&O 11/23/21 08:12 Temp 36.0 Pulse 76 Resp 22 B/P (MAP) 138/100 (113) Pulse Ox 100 O2 Delivery Room Air Blood Pressure Mean: 113 Initial ECG Impression Date: Nov 23, 2021 Initial ECG Impression Time: 08:17 Initial ECG Rate: 77 Comment Sinus rhythm with no diagnostic ST elevation or depression. Frequent PVCs in quadgemini. No abnormal intervals. LVH noted. Diagnostic Imaging Diagonstic Imaging: Xray Plain Films/CT/US/NM/MRI: chest Comments NAME: ROHIT JACKMAN MED REC#: [id number] PT STATUS: REG ER : 1975 PHYSICIAN: LÁZARO MEJIA MD ADMIT DATE: 11/23/21/ER Signed Date of Exam:11/23/21 CHEST 1 VIEW, AP/PA ONLY EXAMINATION: Chest 1 view HISTORY: Chest pain. Palpitations. COMPARISON: 03/09/2016. FINDINGS: The lung volumes are normal. No focal consolidation is seen. No large pleural effusion or pneumothorax is seen. The cardiomediastinal silhouette is normal in size and contour. No acute osseous abnormality is seen. IMPRESSION: 1. No acute pleuroparenchymal process. Dictated by: Dictated on workstation # [id number] Dict: 11/23/21912 Trans: 11/23/21914 [facility] [id number] Interpreted by: JUSTEN SELLERS DO Electronically signed by: JUSTEN SELLERS DO 11/23/21914 Reviewed: Reviewed by Me Departure Impression Primary Impression: Ventricular quadrigeminy Additional Impressions: Hypokalemia Chest discomfort Palpitations Disposition: HOME, SELF-CARE Condition: Improved Departure-Patient Inst. Decision time for Depature: 12:18 Referrals: MARY ELLEN GRACIA DO (PCP/Family) Primary Care Physician Patient Instructions: Hypokalemia, Ventricular Premature Beats Add. Discharge Instructions: Consume some of foods and beverages high in potassium daily. Start your potassium supplement as prescribed. Have your primary care provider or cloth trimmer hand check your potassium in 1 to 2 weeks. Avoid stimulants such as excessive caffeine, decongestants, diet pills, energy drinks, workout supplements, etc. Return to care if you have worsening symptoms despite following these instructions. Please notify your cloth trimmer hand that you were seen in the emergency room today for quadrigeminy that improved with potassium supplementation. Seek directions for follow-up from the cardiology office. All discharge instructions reviewed with patient and/or family. Voiced underst anding. Scripts Potassium Chloride (Potassium Chloride) 20 Meq Tablet.er 20 MEQ PO DAILY, #30 TAB Prov: LÁZARO MEJIA MD 11/23/21 LÁZARO MEJIA MD Nov 23, 2021 09:30
[2021-11-23 09:33] LABS: TSH (THYROID ANALYZER) 2.42 UIU/ML (0.35-4.94)
[2021-11-23] MEDS ORDERED: KCL 10 MEQ TAB (MICRO K) PO ONE (12:15)
[2021-11-23] MEDS ORDERED: POTA-51 PO (12:21)
[2021-11-23 12:35] VITALS: BP 113/79
== END 2021-11-23 12:35 | disposition home or self-care (01) ==
LOC: EDUNIT# 08:11 → ER 08:13
DX: I49.3 Ventricular premature depolarization (principal); E87.6 Hypokalemia; R07.89 Other chest pain; R00.2 Palpitations; Z20.822 Contact with and (suspected) exposure to COVID-19
CPT/HCPCS: 36415; 71045; 80053; 83735; 83874; 83880; 84443; 84484; 84703; 85025; 85379; 85610; 85730; 86141; 87636; 93005; 93041